=== PATIENT | male | born 1985 | race Two or more races ===

== ENCOUNTER 2017-01-30 03:14 | Emergency (ER) | payer MEDICAID ==
[~2017-01-30] VITALS: Ht 177.8 cm; Wt 77.1 kg
[2017-01-30 06:49] LABS: Albumin 3.8 g/dL (3.4-5.0); Bilirubin, Total 0.4 mg/dL (0.2-1.0); Calcium 8.8 mg/dL (8.5-10.1); Magnesium 2.4 mg/dL (1.6-2.6); Potassium 3.7 mmol/L (3.5-5.1); Total Protein 8.2 g/dL (6.4-8.2)
[2017-01-30 06:59] LABS: Basophils # (auto) 0 uL; Basophils % (auto) 0.4 % (0.0-2.0); Eosinophils # (auto) 0.1 uL; Eosinophils % (auto) 0.6 % (0.0-7.0); Hematocrit 45.1 % (41.0-53.0); Hemoglobin 15.5 g/dL (13.5-17.5); Lymphocytes # (auto) 1.9 uL; Lymphocytes % (auto) 21.3 % (10.0-50.0); Mean Corpuscular Hemoglobin 27.4 pg (28.0-32.0); Mean Corpuscular Hgb Conc. 34.4 g/dL (32.0-36.0); Mean Corpuscular Volume 79.6 fL (80.0-100.0); Mean Platelet Volume 8.1 fL (6.9-10.8); Monocytes # (auto) 0.5 uL; Monocytes % (auto) 6.1 % (0.0-12.0); Neutrophils # (auto) 6.5 uL; Neutrophils % (auto) 71.6 % (37.0-80.0); Nucleated Red Blood Cells % 0.1 %; Platelet Count (auto) 296 10^3/uL (140-450)
[2017-01-30] MEDS: METOCLOPRAMIDE HCL 5MG/ml INJ 2ml VIAL IV ONE (07:20)
[2017-01-30] MEDS: KETOROLAC TROMETH 30 MG/ML 1ML VIAL IV ONE (07:20)
[2017-01-30 07:38] LABS: Urine Bilirubin Negative (Negative); Urine Blood Negative /uL (Negative); Urine Color Yellow (Yellow); Urine Glucose Normal (Normal); Urine Ketone Negative (Negative); Urine Mucus FEW (None Seen); Urine Nitrite Negative (Negative); Urine RBC 1 /hpf (0 - 3); Urine Squamous Epithelial Cell FEW /hpf (<5); Urine Urobilinogen Normal (Negative)
[2017-01-30 10:59] VITALS: BP 119/73
== END 2017-01-30 17:00 | disposition home or self-care (01) ==
LOC: EDBD 03:14 → ER 03:20
DX: K52.9 Noninfective gastroenteritis and colitis, unspecified (principal); K90.49 Malabsorption due to intolerance, not elsewhere classified; F17.210 Nicotine dependence, cigarettes, uncomplicated; Z21 Asymptomatic human immunodeficiency virus [HIV] infection status
CPT/HCPCS: 36415; 71020; 74176; 80053; 80320; 81001; 82150; 83690; 83735; 85025; 96374; 96375; 99285; J1885; J2765

== ENCOUNTER 2023-10-11 00:38 | Emergency (ER) | payer MEDICAID, OTHER ==
[~2023-10-11] VITALS: Ht 175.3 cm; Wt 85.0 kg
[2023-10-11 00:52] LABS: Urine Bacteria None Seen /hpf (None Seen)
[2023-10-11 01:00] VITALS: PULSE 80; RESP 18; O2SAT 98
[2023-10-11 01:05] LABS: Basophils # (auto) 0 10 ^3/uL (0-0.2); Basophils % (auto) 0.8 % (0.0-2.0); Eosinophils # (auto) 0.1 10 ^3/uL (0-0.8); Eosinophils % (auto) 1.3 % (0.0-7.0); Hematocrit 40.7 % (41.0-53.0); Hemoglobin 14.3 g/dL (13.5-17.5); Lymphocytes # (auto) 2.2 10 ^3/uL (0.4-5.4); Lymphocytes % (auto) 36.2 % (10.0-50.0); Mean Corpuscular Hemoglobin 28.6 pg (28.0-32.0); Mean Corpuscular Hgb Conc. 35.1 g/dL (32.0-36.0); Mean Corpuscular Volume 81.5 fL (80.0-100.0); Monocytes # (auto) 0.4 10 ^3/uL (0-1.3); Monocytes % (auto) 5.9 % (0.0-12.0); Neutrophils # (auto) 3.4 10 ^3/uL (1.6-8.6); Neutrophils % (auto) 55.8 % (37.0-80.0); Red Cell Distribution Width 13.3 % (11.8-14.3)
[2023-10-11 01:21] LABS: Urine Blood Negative /uL (Negative); Urine Clarity Clear (Clear); Urine Color Light-Yellow (Yellow); Urine Mucus FEW (None Seen); Urine Protein, UAD Negative (Negative); Urine Urobilinogen Normal (Negative); Urine WBC 1 /hpf (0 - 3); Urine pH 5.5 (5.0-9.0)
[2023-10-11 01:24] LABS: Acetaminophen < 2.0 UG/ML (10.0-20.0); Chloride 108 mmol/L (98-107); Potassium 3.5 mmol/L (3.5-5.1); Sodium 139 mmol/L (136-145)
[2023-10-11 01:26] LABS: Anion Gap 8 (5-15); Calcium 9.3 mg/dL (8.7-10.4); Carbon Dioxide 23 mmol/L (20-30)
[2023-10-11 01:30] LABS: Salicylate < 3.0 mg/dL (2.8-20.0)
[2023-10-11 01:30] LABS: Amphetamine Screen, Urine Pos (NEGATIVE)
[2023-10-11 01:31] LABS: Alkaline Phosphatase 72 U/L (46-116); BUN/Creatinine Ratio 8.2 (10.0-20.0); Blood Alcohol < 3.0 mg/dL (<10); Blood Urea Nitrogen 8 mg/dL (9-23); Glucose 94 mg/dL (74-106)
[2023-10-11 01:31] LABS: Barbiturate Scree,Urine Neg (NEGATIVE); Benzodiazephine Screen, Urine Neg (NEGATIVE); Cannabinoid Screen, Urine Neg (NEGATIVE); Cocaine Screen, Urine Neg (NEGATIVE); Opiate Scree,Urine Neg (NEGATIVE); Phencyclidine Screen, Urine Neg (NEGATIVE)
[2023-10-11 01:33] LABS: Alanine Aminotransferase 19 U/L (7-40); Albumin 4.3 g/dL (3.2-4.8); Aspartate Aminotransferase 9 U/L (13-40); Bilirubin, Total 0.3 mg/dL (0.2-1.0); Total Protein 7.1 g/dL (5.7-8.2)
[2023-10-11 07:22] VITALS: PULSE 72; RESP 16; O2SAT 99
[2023-10-11] MEDS: LORazepam 0.5 MG TAB PO ONE (16:12)
[2023-10-11 20:33] VITALS: PULSE 88; RESP 18; O2SAT 98
[2023-10-11] MEDS: risperiDONE 1 MG TAB PO SCH (22:00)
[2023-10-12 08:14] VITALS: PULSE 93; RESP 18; O2SAT 98
[2023-10-12] MEDS: FLUoxetine HCL 20 MG CAP PO SCH (10:06)
[2023-10-12] MEDS: IBUPROFEN 800 MG TAB PO ONE (18:02)
[2023-10-13 09:09] VITALS: PULSE 70; RESP 22; O2SAT 98
[2023-10-14 07:49] VITALS: RESP 18
[2023-10-14] MEDS: FLUoxetine HCL 20 MG CAP ONE (08:26)
[2023-10-14] MEDS: risperiDONE 1 MG TAB ONE (08:26)
[2023-10-14] MEDS: IBUPROFEN 400 MG TAB PO ONE ×3 (12:01→20:51)
[2023-10-14] MEDS ORDERED: IBUPROFEN 400 MG TAB PO ONE (20:32)
[2023-10-14 21:45] VITALS: PULSE 76; RESP 16; O2SAT 99
[2023-10-14] MEDS: risperiDONE 1 MG TAB PO SCH (22:28)
[2023-10-15 07:55] VITALS: BP 120/69; PULSE 86; RESP 18; TEMP 97.6; O2SAT 100
[2023-10-15] MEDS ORDERED: FLUO20TA36 PO (09:47)
[2023-10-15] MEDS ORDERED: RISP0.5T17 PO (09:47)
== END 2023-10-15 10:25 | disposition home or self-care (01) ==
LOC: EDBD 00:38 → ER 00:38
DX: R45.851 Suicidal ideations (principal); F32.9 Major depressive disorder, single episode, unspecified; R44.0 Auditory hallucinations; F17.210 Nicotine dependence, cigarettes, uncomplicated; Z90.49 Acquired absence of other specified parts of digestive tract
CPT/HCPCS: 36415; 80053; 80307; 80320; 80329; 81001; 85025

== ENCOUNTER 2024-02-17 19:35 | Emergency (ER) | payer MEDICAID, OTHER ==
[~2024-02-17] VITALS: Ht 172.7 cm; Wt 84.1 kg
[~2024-02-17 19:35] MED LIST: FLUO20TA42 PO; RISP0.5T17 PO
[2024-02-17 19:36] VITALS: BP 132/92; RESP 20; O2SAT 99
--- NOTE | 2024-02-17 19:45 | ED.PDOC ---
Psychiatric HPI Comments HPI: Poor Historian. 32-year-old male brought in by ambulance for evaluation of nonspecific generalized across his upper chest intermittent discomfort without associated symptoms. Patient points to his bilateral lateral pectoralis regions. No particular alleviating or precipitating factors. Onset of symptoms started approximately 1-2 weeks ago when he ran out of all his psych medications. Patient states he has been having hallucinations auditory and has been having suicidal ideation. Past Medcial History: Bipolar, anxiety, schizophrenia, depression, anxiety Past Surgical History: REVIEW OF SYSTEMS: CONSTITUTIONAL: Denies acute: fever, diaphoresis, chills, generalized weakness. HEAD: Denies acute: headache, photophobia Eyes: Denies acute: Double vision, vision loss, eye pain, eye discharge. EARS: Denies acute: tinnitus, hearing loss, ear discharge, ear pain, THROAT: Denies acute: sore throat, swelling, difficulty swallowing , pain with swallowing, change in voice. NECK: Denies acute: neck pain, neck swelling, stiff neck. HEART: Denies acute : palpitations, LUNGS: Denies acute: SOB, wheezing, cough, hemoptysis ABDOMEN: Denies acute: abdominal pain, Nausea, Vomiting, diarrhea, melena , hematemesis, hematochezia SKIN: Denies acute: rash, redness, lesions, itchiness. EXTREMITIES: Denies acute: calf pain, numbness, tingling, weakness, denies pain in extremity. Denies acute: Low back pain. Neuro: Denies acute: focal neurological deficit, motor or sensory focal neurological deficit, tremors, seizure like activity, confusion, dizziness, change in mental status, loss of bowel or bladder function, cauda equina like symptoms. : Denies acute: dysuria, hematuria, flank pain, increase in urinary frequency. PSYCH: Denies acute: homicidal ideation. PHYSICAL EXAM: General: no acute distress, awake and alert. Head: normocephalic, atraumatic. Neck: supple, trachea is midline, no swelling. Throat: Normal phonation. Eyes:, no erythema, no purulent discharge, no proptosis, no icterus. Heart: regular rate, regular rhythm, no significant murmur appreciated. Lungs: no apparent respiratory distress, Able to speak in full sentences. No wheezing, no rhonchi, no crackles. No stridors Clear to auscultation bilaterally. Abdomen: non tender to palpation, non distended, soft, no guarding, no rebound, + bowel sounds. Neuro: Awake, Alert, oriented to name, self, situation, follows commands GCS=15. Speech is normal. Skin: no petechia, no purpura, no cyanosis, non-pale, not jaundice. Lower extremities: --no - Pitting edema no deformity, no focal swelling, no calf TTP. Makes eye contact. moves all four extremities. Face: no apparent facial droop. No CVA tenderness to percussion bilaterally. Patient ambulating independently in the ED Chief Complaint: Chest Pain Time Seen by MD: 19:38 Primary Care Provider: NONE Reviewed Notes: Nurses Notes, Transitions Manager Rn Notes, Allergies Information Source: Patient, Emergency Med Personnel Past Medical History PAST MEDICAL HISTORY: HIV Surgical History: Cholecystectomy Family History Family History: Unobtainable Social History Smoker: Cigarettes, Less Than 1 Pack/Day Alcohol: Denies ETOH Use Drugs: Denies Drug Use Lives In: Home Was a procedure done? Was a procedure done?: No Psych Differential Dx Psych. Differential Dx: Anxiety, Bipolar Disorder, Panic Disorder, Joaquín izoprenia, Suicidal Suicidal Differential Dx: Anxiety, Bipolar Disorder, Conversion Disorder, Depression, Homicidal, Panic Disorder, Personality Disorder, Schizoprenia, Substance Abuse X-Ray, Labs, Meds, VS Vital Signs Date Time Temp Pulse Resp B/P (MAP) Pulse Ox O2 Delivery O2 Flow Rate FiO2 02/17/24 20:51 104 02/17/24 19:40 99 02/17/24 19:36 97.8 95 20 132/92 (105) 99 Lab Test 02/17/24 21:29 02/17/24 19:55 Range/Units Troponin I High Sensitivity < 3 L < 3 L </=54 ng/L White Blood Count 7.1 4.4-10.8 10^3/uL Red Blood Count 5.49 4.5-5.90 10^6/uL Hemoglobin 15.2 13.5-17.5 g/dL Hematocrit 44.3 41.0-53.0 % Mean Corpuscular Volume 80.8 80.0-100.0 fL Mean Corpuscular Hemoglobin 27.8 L 28.0-32.0 pg Mean Corpuscular Hemoglobin Concent 34.4 32.0-36.0 g/dL Red Cell Distribution Width 12.8 11.8-14.3 % Platelet Count 319 140-450 10^3/uL Mean Platelet Volume 7.8 6.9-10.8 fL Neutrophils (%) (Auto) 65.8 37.0-80.0 % Lymphocytes (%) (Auto) 26.8 10.0-50.0 % Monocytes (%) (Auto) 6.4 0.0-12.0 % Eosinophils (%) (Auto) 0.6 0.0-7.0 % Basophils (%) (Auto) 0.4 0.0-2.0 % Neutrophils # (Auto) 4.6 1.6-8.6 10 ^3/uL Lymphocytes # (Auto) 1.9 0.4-5.4 10 ^3/uL Monocytes # (Auto) 0.5 0-1.3 10 ^3/uL Eosinophils # (Auto) 0 0-0.8 10 ^3/uL Basophils # (Auto) 0 0-0.2 10 ^3/uL Nucleated Red Blood Cells 0.1 % Sodium Level 139 136-145 mmol/L Potassium Level 3.8 3.5-5.1 mmol/L Chloride Level 104 98-107 mmol/L Carbon Dioxide Level 24 20-31 mmol/L Anion Gap 11 5-15 Blood Urea Nitrogen 11 9-23 mg/dL Creatinine 1.04 0.700-1.30 mg/dL Glomerular Filtration Rate Calc 94 >90 mL/min BUN/Creatinine Ratio 10.6 10.0-20.0 Serum Glucose 98 74-106 mg/dL Lactic Acid Level 1.3 0.4-2.0 mmol/L Calcium Level 10.4 8.7-10.4 mg/dL Total Bilirubin 1.4 H 0.2-1.0 mg/dL Aspartate Amino Transferase (AST) 26 13-40 U/L Alanine Aminotransferase (ALT) 35 7-40 U/L Alkaline Phosphatase 73 46-116 U/L Total Protein 7.8 5.7-8.2 g/dL Albumin 4.9 H 3.2-4.8 g/dL Salicylates Level < 3.0 -30 mg/dL Acetaminophen Level < 2.0 L 10.0-20.0 UG/ML Current Medications Medications (Trade) Dose Ordered Sig/Joaquín Route Start Time Stop Time Status Last Admin Risperidone (RisperDAL TABLET) 2 mg ONCE ONCE PO 02/17/24 22:45 02/17/24 22:51 DC 02/18/24 00:59 [place] [address] Ph: [phone] DIAGNOSTIC IMAGING Diagnostic Imaging Report : [id number] Signed PATIENT: CLIFFORD LOZOYA ACCT: [id number] UNIT: [id number] : 1985 LOC: ER ROOM / BED: / AGE / SEX: 38 / M ADM STATUS: REG ER SERVICE 44 ORDERING PHYSICIAN: NING HIGGINS DO PROCEDURE(s): CXRP - CHEST PORTABLE REASON: cp ORDER NUMBER(s): [id number], ACCESSION NUMBER(s): [id number] EXAM: XY CHEST PORTABLE CLINICAL HISTORY: cp TECHNIQUE: Single AP view of the chest WID: COMPARISON: None FINDINGS: Lines and tubes: None Chest: The heart size and pulmonary vasculature is within normal limits. No pleural effusion, pneumothorax, or consolidation. The osseous structures are grossly intact. IMPRESSION: No acute cardiopulmonary abnormality. ATED BY: AJAY MERRILL MD DICTATED DATE/TIME: 02/17/242216 SIGNED BY: AJAY MERRILL MD SIGNED DATE/TIME: 02/17/242216 CC: Time of 1ST Reevaluation: 22:48 (Dr. Cheema the psychiatrist on-call evaluated the patient via camera on tele psych. He spoke with me in the phone and recommends discharging the patient home with medication refill for one month of Risperdal 2 mg at nighttime and Prozac 20 mg in the morning. These are his home medications. He does not recommend a hold or further evaluation or treatment here in the ED.) Reevaluation 1ST: Improved Patient Education/Counseling: Diagnosis, Treatment Family Education/Counseling: No Family Present Comments Patient presented with the above HPI.---psychiatric/cardiac---workup was initiated. patient was found with the above mentioned diagnosis. Patient ED course and VS have been stabilized. Patient has been reassessed in the ED and remained in a stable condition. Patient was evaluated by tele psych. They recommended discharging the patient home with his home medications Pertinent incidental findings were discussed with the patient and/or family. Patient/family voices understanding and is agreeable with plan. Patient has been observed in the ED adequate length of time to insure improvement/stability. patient was discharged home in a stable condition. All the reports of any imaging studies that were ordered by myself were reviewed by myself. Departure 1 Departure Time of Disposition: 21:01 Impression: Primary Impression: Suicide ideation Additional Impressions: Auditory hallucination Schizophrenia Depression Medication refill Disposition: HOME / SELF CARE / HOMELESS Admit to: Tele Condition: Stable Additional Instructions: Additional discharge instructions: You MUST follow-up with your primary care/family doctor in 1 to 2 days. If you are unable to see your primary care/family doctor, please return to our emergency room for re-assessment and re-evaluation in 1 to 2 days. Return to the emergency room here in our facility or to the nearest ER [facility] if your symptoms change or worsen. CONSULTATIONS: you MUST Follow-up for consultation as soon as possible with: -psychiatry and cardiology in 1-2 days. Please call for appointment. You MUST call the consultants office yourself to make an appointment. You may need to arrange that through your insurance and/or your primary/family doctor. If you are unable to see the industrial rehabilitation consultant in 1 to 2 days, you must return to our emergency room (or any other ER of your choice) for re-assessment and re- evaluation. Adequate fluid hydration. e-Prescriptions Fluoxetine HCl (Pmdd) (Fluoxetine HCl) 20 Mg Tab 20 MG PO QAM for 30 Days, #30 TAB Prov: NING HIGGINS DO 02/17/24 Risperidone (Risperidone) 2 Mg Tab 1 TAB PO QPM, #30 TAB 1 Refill Prov: NING HIGGINS DO 02/17/24 Discharged With: Self Critical Care Note Critical Care Time?: No Heart Score Heart Score: Heart Score Response (Comments) Value History Slightly Suspicious 0 EKG Normal 0 Age <45 0 Risk Factors No known risk factors 0 Troponin Normal limit 0 Total 0 I personally scribed for NING HIGGINS DO ([email or web address]) on 02/17/24 at 21:50. Electronically submitted by Abby Garcia ([email or web address]). NING HIGGINS DO Feb 17, 2024 19:45
[2024-02-17 20:08] LABS: Basophils # (auto) 0 10 ^3/uL (0-0.2); Basophils % (auto) 0.4 % (0.0-2.0); Eosinophils # (auto) 0 10 ^3/uL (0-0.8); Eosinophils % (auto) 0.6 % (0.0-7.0); Hematocrit 44.3 % (41.0-53.0); Hemoglobin 15.2 g/dL (13.5-17.5); Lymphocytes # (auto) 1.9 10 ^3/uL (0.4-5.4); Lymphocytes % (auto) 26.8 % (10.0-50.0); Mean Corpuscular Hemoglobin 27.8 pg (28.0-32.0); Mean Corpuscular Hgb Conc. 34.4 g/dL (32.0-36.0); Mean Corpuscular Volume 80.8 fL (80.0-100.0); Monocytes # (auto) 0.5 10 ^3/uL (0-1.3); Monocytes % (auto) 6.4 % (0.0-12.0); Neutrophils # (auto) 4.6 10 ^3/uL (1.6-8.6); Neutrophils % (auto) 65.8 % (37.0-80.0); Nucleated Red Blood Cells % 0.1 %; Platelet Count (auto) 319 10^3/uL (140-450); Red Blood Cells 5.49 10^6/uL (4.5-5.90); Red Cell Distribution Width 12.8 % (11.8-14.3); White Blood Cell 7.1 10^3/uL (4.4-10.8)
[2024-02-17 20:31] LABS: Alanine Aminotransferase 35 U/L (7-40); Albumin 4.9 g/dL (3.2-4.8); Alkaline Phosphatase 73 U/L (46-116); Anion Gap 11 (5-15); Aspartate Aminotransferase 26 U/L (13-40); BUN/Creatinine Ratio 10.6 (10.0-20.0); Blood Urea Nitrogen 11 mg/dL (9-23); Calcium 10.4 mg/dL (8.7-10.4); Carbon Dioxide 24 mmol/L (20-31); Chloride 104 mmol/L (98-107); Glucose 98 mg/dL (74-106); Potassium 3.8 mmol/L (3.5-5.1); Sodium 139 mmol/L (136-145)
[2024-02-17 20:32] LABS: Acetaminophen < 2.0 UG/ML (10.0-20.0); Bilirubin, Total 1.4 mg/dL (0.2-1.0); Total Protein 7.8 g/dL (5.7-8.2)
[2024-02-17 20:51] VITALS: PULSE 104
[2024-02-17 21:11] LABS: Salicylate < 3.0 mg/dL (-30)
--- NOTE | 2024-02-17 22:19 | DVH ---
EXAM: XY CHEST PORTABLE CLINICAL HISTORY: cp TECHNIQUE: Single AP view of the chest WID: COMPARISON: None FINDINGS: Lines and tubes: None Chest: The heart size and pulmonary vasculature is within normal limits. No pleural effusion, pneumothorax, or consolidation. The osseous structures are grossly intact. IMPRESSION: No acute cardiopulmonary abnormality.
--- NOTE | 2024-02-17 22:42 | DVHINCON2 ---
Date of Service if different f: Feb 17, 2024 Time of Service: 22:16 Consultation ([facility]) Consulting Physician: MARQUISE LUGO MD Labs Laboratory Tests Test 02/17/24 19:55 02/17/24 21:29 White Blood Count 7.1 10^3/uL (4.4-10.8) Red Blood Count 5.49 10^6/uL (4.5-5.90) Hemoglobin 15.2 g/dL (13.5-17.5) Hematocrit 44.3 % (41.0-53.0) Mean Corpuscular Volume 80.8 fL (80.0-100.0) Mean Corpuscular Hemoglobin 27.8 pg (28.0-32.0) Mean Corpuscular Hemoglobin Concent 34.4 g/dL (32.0-36.0) Red Cell Distribution Width 12.8 % (11.8-14.3) Platelet Count 319 10^3/uL (140-450) Mean Platelet Volume 7.8 fL (6.9-10.8) Neutrophils (%) (Auto) 65.8 % (37.0-80.0) Lymphocytes (%) (Auto) 26.8 % (10.0-50.0) Monocytes (%) (Auto) 6.4 % (0.0-12.0) Eosinophils (%) (Auto) 0.6 % (0.0-7.0) Basophils (%) (Auto) 0.4 % (0.0-2.0) Neutrophils # (Auto) 4.6 10 ^3/uL (1.6-8.6) Lymphocytes # (Auto) 1.9 10 ^3/uL (0.4-5.4) Monocytes # (Auto) 0.5 10 ^3/uL (0-1.3) Eosinophils # (Auto) 0 10 ^3/uL (0-0.8) Basophils # (Auto) 0 10 ^3/uL (0-0.2) Nucleated Red Blood Cells 0.1 % Sodium Level 139 mmol/L (136-145) Potassium Level 3.8 mmol/L (3.5-5.1) Chloride Level 104 mmol/L (98-107) Carbon Dioxide Level 24 mmol/L (20-31) Anion Gap 11 (5-15) Blood Urea Nitrogen 11 mg/dL (9-23) Creatinine 1.04 mg/dL (0.700-1.30) Glomerular Filtration Rate Calc 94 mL/min (>90) BUN/Creatinine Ratio 10.6 (10.0-20.0) Serum Glucose 98 mg/dL (74-106) Lactic Acid Level 1.3 mmol/L (0.4-2.0) Calcium Level 10.4 mg/dL (8.7-10.4) Total Bilirubin 1.4 mg/dL (0.2-1.0) Aspartate Amino Transf (AST/SGOT) 26 U/L (13-40) Alanine Aminotransferase (ALT/SGPT) 35 U/L (7-40) Alkaline Phosphatase 73 U/L (46-116) Total Protein 7.8 g/dL (5.7-8.2) Albumin 4.9 g/dL (3.2-4.8) Salicylates Level < 3.0 mg/dL (-30) Acetaminophen Level < 2.0 UG/ML (10.0-20.0) Troponin I High Sensitivity < 3 ng/L (</=54) Appearance: Stated age Psychomotor activity: WNL Behavioral: Cooperative Eye contact: Appropriate Speech: WNL Affect: Appropriate Mood: Depressed Thought processes: Linear/Goal-directed Thought content: WNL, Hallucinations Suicidal ideations: Absent Homicidal ideations: Absent Orientation: Person, Place, Time, Situation Memory intact: Recent Intellect: Average Abstractability: WNL Concentration: Adequate Attention: Adequate Judgement: WNL Insight: Fair Vitals Vital Signs Date Time Temp Pulse Resp B/P (MAP) Pulse Ox O2 Delivery O2 Flow Rate FiO2 02/17/24 19:36 97.8 95 20 132/92 (105) 99 Treatment plan discussed: With staff Medication adjusted: Yes Labs ordered: No Psychotherapy provided: Yes Type: Voluntary History of Present Illness Reason for Consult : psychiatric evaluation PER ED PHYSICIAN: 32-year-old male brought in by ambulance for evaluation of nonspecific generalized across his upper chest intermittent discomfort without associated symptoms. Patient points to his bilateral lateral pectoralis regions. No particular alleviating or precipitating factors. Onset of symptoms started approximately 1-2 weeks ago when he ran out of all his psych medications. Patient states he has been having hallucinations auditory and has been having suicidal ideation. PSYCHIATRIST HPI: The patient was seen and evaluated at [facility] ED via telepsychiatry platform. 38 yr old male reported that he has been feeling uncomfortable lately. He said that his stress around him is making him more depressed. He noted he hears voices. He has been taking fluoxetine 20mg and risperdal 2mg which he last two weeks ago. He said he ran out of the medications. He noted he feels somewhat suicidal, but does not want to act on it. He feels like he needs to get restarted on his medication. He stated he feels depressed lately and tired. Past Psychiatric History : Diagnosed with schizoaffective disorder in the past. Sees psychiatrist monthtly. Hospitalized a few times in the past. One suicide attempt about 7 years ago. Past Medical History: none Current Medications: fluoxetine 20mg qam, risperdal 2mg qhs (not taken for two weeks) NKDA Substance use: Occasional alcohol use. Last used meth about three weeks ago. Denied and other substance use. Social History : Lives in area with family. Never . No children. Works occasionally. Diagnosis: SCHIZOAFFECTIVE DISORDER Formulation: This 38 yr old male appears to suffer from schizoaffective disorder. He may benefit from restarting his outpatient medications and following up with his outpatient provider. He does not warrant hospitalization at this time but may benefit from an overnight stay in the ED for observation. Plan: 1. Recommend monitor in the ED overnight and discharge in the morning. 2. Legal-voluntary. 3. Medication: recommend starting the following and giving the patient a prescription for thirty days and two refills of the following: Risperdal 2mg qhs Fluoxetine 20mg qam. 4. Contact psychiatry if further follow up or reevaluation is desired. 5. Case discussed with ED Physician, Dr Gibbons. Assessment/Diagnosis/Plan Reviewed: Labs, Medications, Previous Orders MARQUISE LUGO MD Feb 17, 2024 22:18
[2024-02-17] MEDS ORDERED: RISP2TAB62 PO (22:47)
[2024-02-17] MEDS ORDERED: FLUO1TAB14 PO (22:47)
[2024-02-18] MEDS: risperiDONE 1 MG TAB PO ONE (00:59)
--- NOTE | 2024-02-18 06:31 | ECG ---
[facility] Test Date: 2024-02-17 Test Time: 20:51:30 Pat Name: CLIFFORD LOZOYA Department: ED Room: Gender: M [employer]: : 1985 Requested By: NING HIGGINS Order Number: [id number] Reading MD: Dimitrios Young Measurements Intervals [place] Rate: 104 P: 91 [place]: 122 QRS: 92 QRSD: 99 T: 85 QT: 335 QTc: 441 Interpretive Statements Sinus tachycardia Borderline right axis deviation Electronically Signed On 02-19-2024 16:16:39 PST by Dimitrios Young Please click the below link to view image of tracing.
--- NOTE | 2024-02-18 15:05 | ECG ---
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
== END 2024-02-18 01:53 | disposition home or self-care (01) ==
LOC: EDBD 19:35 → ER 19:35
DX: R45.851 Suicidal ideations (principal); F32.9 Major depressive disorder, single episode, unspecified; F20.9 Schizophrenia, unspecified; F17.210 Nicotine dependence, cigarettes, uncomplicated; Z76.0 Encounter for issue of repeat prescription; Z90.49 Acquired absence of other specified parts of digestive tract; Z79.899 Other long term (current) drug therapy
CPT/HCPCS: 36415; 71045; 80053; 80307; 80329; 81001; 83605; 84484; 85025; 93005